=== PATIENT | male | born 2005 | race Two or more races ===

== ENCOUNTER 2023-11-27 20:33 | Emergency (ER) | payer OTHER, SELFPAY ==
[~2023-11-27] VITALS: Ht 190.5 cm; Wt 105.5 kg
[2023-11-28 00:24] VITALS: BP 124/56; TEMP 97.7; O2SAT 98
[2023-11-28] MEDS: LIDOCAINE 1% MDV 20ML VIAL SC ONE (01:15)
[2023-11-28] MEDS: CLINDAMYCIN 150MG CAPSULE PO ONE (01:24)
[2023-11-28] MEDS ORDERED: CLEO300C2 PO (01:27)
[2023-11-28] MEDS ORDERED: IBUP-1022 PO (01:27)
== END 2023-11-28 01:38 | disposition home or self-care (01) ==
LOC: M ED 20:33
DX: S01.511A Laceration without foreign body of lip, initial encounter (principal); S06.0X0A Concussion without loss of consciousness, initial encounter; Y92.410 Unspecified street and highway as the place of occurrence of the external cause; Y93.9 Activity, unspecified; Y99.9 Unspecified external cause status; V49.40XA Driver injured in collision with unspecified motor vehicles in traffic accident, initial encounter; Z88.0 Allergy status to penicillin; Z79.1 Long term (current) use of non-steroidal anti-inflammatories (NSAID); Z79.2 Long term (current) use of antibiotics